=== PATIENT | female | born 1950 | race Caucasian/White ===

== ENCOUNTER 2017-02-19 09:46 | Day surgery (SDC) | payer MEDICARE ==
--- NOTE | 2017-02-19 07:16 | History and Physical Report ---
DATE: 02/18/2017. CHIEF COMPLAINT AND HISTORY OF CHIEF COMPLAINT: This patient presents with a history of an intractable lumbar radiculitis. She has a failing spinal cord stimulator with internal generator for the low back and legs. After assessment , it was felt that due to the failure of the system removal and replacement or removal is warranted. She opted to remove and replace with a system from a different cake maker. We will remove the [employer] system and this will be replaced with a Tier 1 Performance system. PAST MEDICAL HISTORY: Hypertension, complex regional pain syndrome. SOCIAL HISTORY: Hypertension. FAMILY HISTORY: Hypertension. PAST SURGICAL HISTORY: Spinal cord stimulator. Peripheral nerve stimulator. Spinal infusion device. MEDICATIONS ON ADMISSION: To be provided. ALLERGIES: None listed. REVIEW OF SYSTEMS: The patient seems appropriate and in no acute distress. The remainder of the systems review is noncontributory. PHYSICAL EXAMINATION: General: Height and weight are not known. Vital Signs: Unavailable. HEENT: Within normal limits. Lungs: Clear. Heart: Regular rate and rhythm. Abdomen: Nontender. Musculoskeletal: Examination of the musculoskeletal system shows a pulse generator at the posterior gluteal margin. The incision site is intact. A midline incision for placement of the leads is intact. There is no breakdown or cellulitis. Lower extremity functionality shows bilateral lower extremity pain, somewhat more left than right. Sensory blackman are intact. Motor functionality is intact. Ambulation: No assistive device utilized. Neurologic: Cranial nerves are intact. IMPRESSION: 1. INTRACTABLE LUMBAR RADICULITIS, ICD-10 CODE M54.16 AND M54.17. 2. SPINAL CORD STIMULATOR INTERNAL GENERATOR NONFUNCTIONAL. PLAN: The patient is here for removal and replacement of a generator and two spinal cord stimulators. We are swapping the system out for a 16-electrode system from her current 8-electrode system. Increasing the number of electrodes ideally will help improve programmability and pain control. The procedure will be considered outpatient, although an overnight stay will be evaluated. All of the potential risks, side effects, and complications have been carefully reviewed and discussed including nerve root injury, spinal cord injury, spinal or dural puncture, and headache. The patient understands and agrees. JOB NUMBER: [id number] cc: Jamshid Razo
[~2017-02-19 09:46] MED LIST: ACETAMINOPHEN 1,000 MG/100 ML BTL IV ONE; CLINDAMYCIN 600MG/50ML PREMIX 600 MG/50 ML BAG IVPB ONE; FAMOTIDINE 20MG TABLET PO ONE; MECLIZINE 25 MG TABLET PO ONE; METOCLOPRAMIDE 10 MG TABLET PO ONE
[2017-02-19] MEDS ORDERED: *PACU ONLY* KETAMINE HCL 10 MG/ML (20ML) VIAL IV ONE (09:47)
[2017-02-19] MEDS ORDERED: CLINDAMYCIN (PEDIATRIC DOSING) 150 MG/ML VIAL IVPB ONE (09:47)
[2017-02-19] MEDS ORDERED: HYDROMORPHONE HCL 2 MG/ML VIAL IV ONE (09:47)
[2017-02-19] MEDS ORDERED: BUPIVACAINE 0.75% W/EPI MPF 30ML VIAL IVP ONE (09:47)
[2017-02-19] MEDS ORDERED: PROPOFOL 10 MG/ML VIAL IV ONE (09:47)
[2017-02-19] MEDS ORDERED: FLUMAZENIL 1MG/10ML VIAL IV ONE (09:47)
[2017-02-19] MEDS ORDERED: FENTANYL PF 100MCG/2ML VIAL IV ONE (09:47)
[2017-02-19] MEDS ORDERED: LIDOCAINE 1% W/EPI 1:200,000 MPF 30ML SQ ONE (09:47)
[2017-02-19] MEDS ORDERED: LIDOCAINE 2% MDV (20MG/ML) 20ML VIAL IV ONE (09:47)
[2017-02-19] MEDS ORDERED: MIDAZOLAM HCL 2MG/2ML VIAL IV ONE (09:47)
[2017-02-19] MEDS ORDERED: SENNOSIDES/DOCUSATE SODIUM UD CAPSULE PO PRN ×2 (16:02)
[2017-02-19] MEDS ORDERED: DIPHENHYDRAMINE HCL IV 50 MG/ML VIAL IVP PRN ×2 (16:02)
[2017-02-19] MEDS ORDERED: OXYCODONE/APAP 10MG-325MG TABLET PO PRN ×2 (16:02)
[2017-02-19] MEDS ORDERED: HYDROMORPHONE HCL 2 MG/ML VIAL IM PRN (16:02)
[2017-02-19] MEDS ORDERED: AL HYDROX/MAG HYDROX 30ML UD PO PRN (16:02)
[2017-02-19] MEDS ORDERED: HYDROMORPHONE HCL 1 MG/ML CPJ IM PRN (16:02)
[2017-02-19] MEDS ORDERED: DIPHENHYDRAMINE HCL 25 MG CAPSULE PO PRN ×2 (16:02)
[2017-02-19] MEDS ORDERED: TEMAZEPAM 15 MG CAPSULE PO PRN ×2 (16:02)
[2017-02-19] MEDS ORDERED: METOCLOPRAMIDE HCL 10 MG/2 ML VIAL IVP PRN (16:02)
[2017-02-19] MEDS ORDERED: ACETAMINOPHEN 325 MG TAB PO PRN ×2 (16:02)
[2017-02-19] MEDS ORDERED: HYDROCODONE/APAP 7.5/325MG TABLET PO PRN ×2 (16:02)
[2017-02-19] MEDS ORDERED: METOCLOPRAMIDE 10 MG TABLET PO PRN (16:02)
--- NOTE | 2017-02-19 18:46 | Operative Note - Ferro ---
DATE OF SURGERY: 02/19/17 PREOPERATIVE DIAGNOSES: 1. INTRACTABLE LUMBAR RADICULITIS, ICD-10 CODE = M54.16 AND M54.17. 2. TWO LEAD SPINAL CORD STIMULATOR, INTERNAL GENERATOR NONFUNCTIONAL. OPERATION: 1. INCISION, SUBCUTANEOUS DISSECTION, AND REMOVAL OF INTERNAL SPINAL CORD STIMULATORS X2. 2. INCISION, SUBCUTANEOUS DISSECTION, AND REMOVAL OF RIGHT POSTERIOR GLUTEAL MARGIN INTERNAL PULSE GENERATOR. 3. FLUOROSCOPICALLY-GUIDED EPIDURAL ACCESS T12-L1, STANDARD EPIDURAL NEEDLE WITH LOSS OF RESISTANCE, PLACEMENT OF SPINAL CORD STIMULATOR LEAD 1, A [employer] INFINION 16 WITH 16 ELECTRODES POSITIONED LEFT T7. 4. FLUOROSCOPICALLY-GUIDED EPIDURAL ACCESS T11-12, PLACEMENT OF SPINAL CORD STIMULATOR LEAD 2, A [employer] INFINION 16 WITH 16 ELECTRODES POSITIONED RIGHT T7. 5. COMPLEX PROGRAMMING LEAD 1 OVER 20 MINUTES FOLLOWED BY COMPLEX PROGRAMMING OF LEAD 2 OVER 20 MINUTES. 6. REVISION OF INCISIONAL SITE FOR LEADS REMOVAL OF NEEDLES, AND USING A [employer] LOCKING ANCHOR TO SECURE EACH LEAD TO THE SUPRASPINOUS FASCIA WITH NONABSORBABLE SUTURE. 7. REVISION OF RIGHT POSTERIOR GLUTEAL MARGIN GENERATOR SITE AND POUCH FOR NEW GENERATOR IDENTIFIED A [employer] PROGRAMMABLE RECHARGEABLE. 8. TUNNELING BETWEEN LEAD POUCH AND GENERATOR POUCH, PLACEMENT OF EACH LEAD TO GENERATOR POUCH, EACH LEAD INTERFACED WITH GENERATOR. 9. PLACEMENT OF GENERATOR INTO POUCH SECURING TO POSTERIOR FASCIA WITH NONABSORBABLE SUTURE. PLACEMENT OF LEADS INTO POUCH. CLOSURE OF INCISIONS VICRYL FOR FASCIA, RUNNING SUBCUTICULAR VICRYL FOR SKIN. DERMABOND CLOSURE. 10. COMPLEX PROGRAMMING INTERNAL GENERATOR, TWO STIMULATORS, HOME USE, 20 MINUTES, RECOVERY ROOM. SURGEON: BIJAL LYNN D.O. ANESTHESIA: LOCAL SEDATION. ANESTHESIA PROVIDER: ENRIKE HERNANDEZ CRNA. INDICATION: This patient presents with a history of intractable radiculitis in the lumbar and lower extremities. A previous [employer]onic 8 electrode system has stopped functioning appropriately. Generator evaluation seems to indicate some battery depletion. Due to the failure of the systems ability to control pain, she was given the option to remove, replace, or revise; she opted to remove and replace with a new [employer] 16 electrode system. PROCEDURE: Intravenous line, vital sign monitoring, IV sedation, prepped and draped sterile technique, patient position on the operating room table prone. Sterile prep. Sterile technique. Under imaging, the incisional site for the two previous leads infiltrated, incision made, and subcutaneous dissection was conducted to the two leads and their anchoring. Suture was removed intact. At the right posterior gluteal margin generator pouch, skin infiltrated, incision made, and subcutaneous dissection was conducted to the generator. The generator was then removed along with its interface to the leads. Antibiotic irrigation and Bovie for hemostasis. The epidural interspace at 11-12 and 12-1 was then marked and infiltrated. Using two standard curved access Epimed needles with sleeves, the interspace was accessed. At 12-1, spinal cord stimulator lead 1, a [employer] Infinion 16 with 16 electrodes advanced to the epidural space , positioned left at T7. The epidural access at 11-12, similar technique, spinal cord stimulator lead 2, also a [employer] Infinion 16 with 16 electrodes positioned right at T7. Complex programming of lead 1 over 20 minutes followed by complex programming of lead 2 over 20 minutes ultimately resulting in patterns of stimulation across the back and into the legs; patient indicating we were in all of the appropriate areas. She was given the option to implant, remove, or continue to program; she opted to implant. Questions were repeated with the same response. Each of the two leads was then anchored to the supraspinous fascia once the needles were removed with a [employer] [place] and nonabsorbable suture. At the right posterior gluteal margin generator pouch, The pouch was revised to accommodate the new generator identified as a [employer] Programmable Rechargeable. A tunneling tool was then used to carry the leads into the generator pouch and each lead was interfaced to the generator. Antibiotic irrigation and Bovie for hemostasis. The generator was then placed into the pouch and secured to the fascia with nonabsorbable suture. The leads were placed into their own pouch and then the incisions were closed Vicryl for fascia and a running subcuticular Vicryl for skin. A Dermabond closure to approximate the wound. She was transported to the Recovery Room, stable, showing no side-effects from the procedure or the sedation. There were no complications with respect to the upper or lower extremities. She was monitored until stable and transported to the Floor for monitoring, will be considered dischargeable. DISCHARGE INSTRUCTIONS: 1. The sites will remain clean and dry. The Dermabond will allow showering in 12 -24 hours. 2. Standard medications resumed including Levaquin, the antibiotic, 500 mg once a day for 14 days. 3. The office will contact the patient at home. She will be evaluated in 7-10 days. Until then, her activities should stay low, limit bend, lift, push, or pull. Should anything occur with respect to the incision or the dressing, she should contact the clinic. All other instructions provided, numbers to contact with problems given. She will be discharged. cc: Dr. Eric Palafox JOB NUMBER: [id number] MTDD
[2017-02-19] MEDS ORDERED: CLINDAMYCIN 600MG/50ML PREMIX 600 MG/50 ML BAG IVPB SCH (21:50)
[2017-02-19] MEDS ORDERED: ZOLPIDEM TARTRATE 5 MG TABLET PO PRN (22:00)
[2017-02-19] MEDS ORDERED: 0.9 % SODIUM CHLORIDE 10ML SYR IVP SCH (22:00)
[2017-02-20] MEDS ORDERED: SPIRONOLACTONE 25 MG TAB PO SCH (10:00)
--- NOTE | 2017-02-20 10:26 | RADIOLOGY REPORT ---
EXAM: AP LUMBAR SPINE HISTORY: STIMULATOR PLACEMENT. TECHNIQUE: An AP view of the lumbar spine was obtained. Comparison: None. FINDINGS: Two stimulator leads overlie the thoracic spine extending cephalad to the mid T8 level. Power pack overlies the right lower quadrant. Minimal dextroconvex curvature of the thoracolumbar spine. IMPRESSION: STIMULATOR LEADS IN PLACE DETAILED ABOVE. JOB NUMBER: [id number] MTDD
== END 2017-02-19 18:20 | disposition home or self-care (01) ==
LOC: SUR 09:46 → MEDSURG 15:57 → SUR 18:20
PROVIDERS: ATTEND Pain Medicine Interventional Pain Medicine
DX: T85.890A Other specified complication of nervous system prosthetic devices, implants and grafts, initial encounter (principal); M54.16 Radiculopathy, lumbar region; M54.17 Radiculopathy, lumbosacral region; I10 Essential (primary) hypertension; G90.50 Complex regional pain syndrome I, unspecified; E78.00 Pure hypercholesterolemia, unspecified
CPT/HCPCS: 95972; 72020; 63685; 63663; 00300; J3010; J1170; J3490; C1820; C1883

== ENCOUNTER 2017-12-31 06:58 | Day surgery (SDC) | payer MEDICARE ==
--- NOTE | 2017-12-31 06:22 | History and Physical - Ferro ---
CHIEF COMPLAINT/HISTORY OF CHIEF COMPLAINT: This patient presents with a history of intractable lumbar radiculopathy and a spinal opioid infusion system infusing Hydromorphone and Bupivacaine. Over the last number of refills and reprogramming's, battery depletion has been noted. She is here for pump battery change. PAST MEDICAL HISTORY: Hypertension and complex regional pain syndrome. PAST SURGICAL HISTORY: Spinal cord stimulator, peripheral nerve stimulator, and spinal infusion device. MEDICATIONS ON ADMISSION: List be provided. ALLERGIES: None. FAMILY/PSYCHOSOCIAL HISTORY: Social history - Hypertension. Family history - Hypertension. SYSTEMS REVIEW: The patient is appropriate in no acute distress. The remainder of the systems review is noncontributory. PHYSICAL EXAMINATION: Height and weight are not known. Vital signs are not available. HEENT: Within normal limits. LUNGS: Clear. HEART: Regular rate and rhythm. ABDOMEN: Nontender. MUSCULOSKELETAL: Examination of the musculoskeletal system shows the pump in the right lower abdominal quadrant. The incision is intact. There is no breakdown. Her primary pain pattern low back with a bilateral lower extremity extension. Motor and sensory field function is intact. NEUROLOGIC: Cranial nerves are intact. IMPRESSION: 1. LUMBAR RADICULOPATHY, ICD-10 CODE M54.16 AND M54.17. 2. IMPLANTED SPINAL OPIOID INFUSION SYSTEM WITH HYDROMORPHONE AND BUPIVACAINE WITH BATTERY DEPLETION. PLAN: The patient is here for a pump battery change. No perimeters changes. The procedure will be considered outpatient although an overnight stay will be evaluated. JOB NUMBER: [id number] MTDD
[~2017-12-31 06:58] MED LIST changes: +BACLOFEN IV ONE; +BUPIVACAINE HCL IV ONE; +HYDROMORPHONE HCL IV ONE; +HYDROMORPHONE PF 2MG/ML AMP 0.008 MG in 0.9 % SODIUM CHLORIDE 10ML VIA 0.996 ML IV ONE; +[UNRECOGNIZED DRUG - OTHER] IV ONE
[2017-12-31] MEDS ORDERED: FENTANYL PF 100MCG/2ML VIAL IV ONE (06:59)
[2017-12-31] MEDS ORDERED: PROPOFOL 10 MG/ML VIAL IV ONE (06:59)
[2017-12-31] MEDS ORDERED: LIDOCAINE 1% W/EPI 1:200,000 MPF 30ML SQ ONE (06:59)
[2017-12-31] MEDS ORDERED: BUPIVACAINE 0.5% W/EPI MPF 30 ML VIAL IVP ONE (06:59)
[2017-12-31] MEDS ORDERED: CLINDAMYCIN (PEDIATRIC DOSING) 150 MG/ML VIAL IVPB ONE (06:59)
[2017-12-31] MEDS ORDERED: LIDOCAINE 2% MDV (20MG/ML) 20ML VIAL IV ONE (06:59)
[2017-12-31] MEDS ORDERED: MIDAZOLAM HCL 2MG/2ML VIAL IV ONE (06:59)
--- NOTE | 2018-01-02 15:41 | Operative Note ---
DATE: 12/31/2017. PREOPERATIVE DIAGNOSES: 1. INTRACTABLE LUMBAR RADICULOPATHY, ICD-10 CODE M54.16 AND M54.17. 2. SPINAL OPIOID INFUSION SYSTEM WITH HYDROMORPHONE AND BUPIVACAINE. 3. BATTERY DEPLETION OF THE PROGRAMMABLE PUMP. PROCEDURE: Fluoroscopically guided removal and replacement of programmable pump at the right abdominal inferior quadrant. SURGEON: Emre John D.O. ANESTHESIA: Local sedation. ANESTHESIA PROVIDER: Trey Coburn CRNA. INDICATIONS: This patient presents with a history of intractable lumbar radiculopathy managed by a spinal opioid infusion system with hydromorphone and bupivacaine. She is here for pump battery replacement after the identification of a depleting battery at the last refill. DESCRIPTION OF PROCEDURE: Intravenous lines, vital sign monitoring, and intravenous sedation by Anesthesia. Sterile prep and sterile technique with the patient supine. The pump in the right lower abdominal quadrant was marked and infiltrated. An incision was made and subcutaneous dissection was conducted to the pouch. The pouch was opened and the pump was exteriorized. The pump was then from the indwelling catheter. A new 20 mL programmable pump prefilled with hydromorphone and bupivacaine was placed onto the field. The indwelling catheter was interfaced to the pump. The pump was secured to the posterior fascia with a nonabsorbable suture. The pump was then placed into the pouch, and the incision was closed using Stratafix suture, #2-0 for the fascia and #3-0 for the skin. Dermabond closure. She was transported to the recovery room stable with no side effects from the procedure or the sedation. When fully awake and alert, she will be prepared for discharge. DISCHARGE INSTRUCTIONS: 1. The sites are to remain clean and dry. No showering or bathing in any way that would disrupt the dressings. If this happens, contact the clinic. 2. Standard medications to be resumed including Levaquin the antibiotic 500 mg once a day for 14 days. 3. There were no parameter changes to her infusion pump, and so no opioid monitoring should be necessary. 4. The office is to contact the patient in 24 to 48 hours to set up an appointment in 7 to 10 days to evaluate the incisional site. Until then her activities should stay low. 5. All other instructions were written out and provided including numbers to contact with problems. She was then discharged. JOB NUMBER: [id number] cc: Jamshid Razo
== END 2017-12-31 10:18 | disposition home or self-care (01) ==
LOC: SUR 06:58
PROVIDERS: ATTEND Pain Medicine Interventional Pain Medicine
DX: M54.16 Radiculopathy, lumbar region (principal); M54.17 Radiculopathy, lumbosacral region; I10 Essential (primary) hypertension; E78.00 Pure hypercholesterolemia, unspecified
CPT/HCPCS: 62365; 00300; Q9967; J3010; J1170

== ENCOUNTER 2018-01-14 06:43 | Day surgery (SDC) | payer MEDICARE ==
[2018-01-14] MEDS ORDERED: FENTANYL PF 100MCG/2ML VIAL IV ONE (06:44)
[2018-01-14] MEDS ORDERED: PROPOFOL 10 MG/ML VIAL IV ONE (06:44)
[2018-01-14] MEDS ORDERED: MIDAZOLAM HCL 2MG/2ML VIAL IV ONE (06:44)
[2018-01-14] MEDS ORDERED: LIDOCAINE 2% MDV (20MG/ML) 20ML VIAL IV ONE (06:44)
[2018-01-14] MEDS ORDERED: LIDOCAINE 1% W/EPI 1:200,000 MPF 30ML SQ ONE (06:44)
[2018-01-14] MEDS ORDERED: DEXAMETHASONE PRESERVATIVE FREE 10MG/ML VIAL IV ONE (06:44)
[2018-01-14] MEDS ORDERED: BUPIVACAINE 0.5% W/EPI MPF 30 ML VIAL IVP ONE (06:44)
--- NOTE | 2018-01-14 16:21 | Operative Note ---
DATE OF SURGERY: 01/14/18 PREOPERATIVE DIAGNOSIS: CERVICAL SPONDYLOSIS WITHOUT MYELOPATHY, ICD-10 CODE = M47.812. OPERATION: RADIOFREQUENCY RHIZOTOMY BILATERAL CERVICAL FACETS 5-6 AND 6- 7. SURGEON: BIJAL LYNN D.O. ANESTHESIA: ANESTHESIA PROVIDER: INDICATION: This patient presents with pain, which is neck and shoulder. Diagnostics show diffuse and multiple levels of spondylosis. Examination showed diffuse tenderness in the cervical spine. Range of motion does cause pain to the neck with extension. A facet series 75% relief. Due to the failure of therapy and success of facet series, the patient presents for rhizotomy for more long-term relief. PROCEDURE: Intravenous line, vital sign monitoring, IV sedation, prepped, draped, sterile technique. Cervical facet levels at 5-6 and 6-7 were identified and marked bilaterally, infiltrated with local then a 22-gauge rhizotomy cannula positioned. Stimulation trials conducted. Rhizotomy burn performed. Local with anti-inflammatory into the sites. Topical antibiotics. Sterile dressing was applied. We will monitor and evaluate. cc: Dr. Palafox JOB NUMBER: [id number] MTDD
== END 2018-01-14 09:12 | disposition home or self-care (01) ==
LOC: SUR 06:43
PROVIDERS: ATTEND Pain Medicine Interventional Pain Medicine
DX: M47.812 Spondylosis without myelopathy or radiculopathy, cervical region (principal); I10 Essential (primary) hypertension; E78.00 Pure hypercholesterolemia, unspecified

== ENCOUNTER 2019-02-17 12:04 | Day surgery (SDC) | payer MEDICARE ==
--- NOTE | 2019-02-17 07:19 | History and Physical - Ferro ---
CHIEF COMPLAINT/HISTORY OF CHIEF COMPLAINT: This patient presents with a history of bilateral lumbar radiculopathy which is indicated as neurogenic intermittent claudication secondary to multiple levels of lumbar spinal stenosis. Due to the failure of therapy and the continuation of pain in the lower extremities, her lower extremity pain is aggravated by ambulation, it subsides and is controlled by sitting or bending forward. Diagnostic studies including MRI shows lumbar spinal stenosis at L3-L4 and L4-L5. Unfortunately she has a spinal catheter at L3-L4, she is here for interspinal spacer - Vertiflex placement at L4-L5 for decompression of the level and spinal stenosis at L4-L5 to control the neurogenic intermittent claudication. Her treatment history has been extensive with 15-20 years of conservative therapies, all have failed to control this leg pain. PAST MEDICAL HISTORY: Hypertension and complex regional pain syndrome. PAST SURGICAL HISTORY: Spinal cord stimulator, peripheral nerve stimulator, and spinal infusion device. MEDICATIONS ON ADMISSION: List to be provided. ALLERGIES: None. FAMILY/PSYCHOSOCIAL HISTORY: Family history - Hypertension. SYSTEMS REVIEW: The patient is appropriate in no acute distress. The remainder of the systems review is noncontributory. PHYSICAL EXAMINATION: No height and weight are known. Vital signs are not available. HEENT: Within normal limits. LUNGS: Clear. HEART: Rapid and regular. ABDOMEN: Nontender. MUSCULOSKELETAL: Examination of the musculoskeletal system shows the primary pain to be bilateral lower extremities. Mild motor and mild sensory abnormalities are noted. Ambulation - No assistive device utilized. The pain is provoked by ambulation and subsides and is controlled by sitting or forward flexing. NEUROLOGIC: Cranial nerves are intact. IMPRESSION: 1. LUMBAR RADICULOPATHY, ICD-10 CODE M54.16 AND M54.17. 2. LUMBAR SPINAL STENOSIS WITH NEUROGENIC INTERMITTENT CLAUDICATION, ICD-10 CODE M48.062. PLAN: The patient is here for interspinal spacer placement at L4-L5 - Vertiflex. The procedure has been described and discussed in detail. Information was provided by the meteorology teacher. Six week researching period is noted. The patient's questions have been answered. The procedure will be outpatient, no overnight stay will be evaluated. JOB NUMBER: [id number] MTDD
[~2019-02-17 12:04] MED LIST changes: -ACETAMINOPHEN 1,000 MG/100 ML BTL IV ONE; +ACETAMINOPHEN 1,000 MG/100 ML BTL IVPB ONE; -BACLOFEN IV ONE; -BUPIVACAINE HCL IV ONE; -HYDROMORPHONE HCL IV ONE; -HYDROMORPHONE PF 2MG/ML AMP 0.008 MG in 0.9 % SODIUM CHLORIDE 10ML VIA 0.996 ML IV ONE; -[UNRECOGNIZED DRUG - OTHER] IV ONE
[2019-02-17] MEDS ORDERED: FENTANYL PF 100MCG/2ML VIAL IV ONE (12:05)
[2019-02-17] MEDS ORDERED: MIDAZOLAM HCL 2MG/2ML VIAL IV ONE (12:05)
[2019-02-17] MEDS ORDERED: PROPOFOL 10 MG/ML VIAL IV ONE (12:05)
[2019-02-17] MEDS ORDERED: LIDOCAINE 2% MDV (20MG/ML) 20ML VIAL IV ONE (12:05)
[2019-02-17] MEDS ORDERED: RINGERS SOLUTION,LACTATED 1,000 ML IV ONE (12:58)
[2019-02-17] MEDS ORDERED: Clindamycin 600mg vial 150 MG/ML VIAL IR ONE (14:55)
--- NOTE | 2019-02-18 09:03 | Operative Note - Ferro ---
DATE OF SURGERY: 02/17/2019 PREOPERATIVE DIAGNOSIS: LUMBAR SPONDYLOSIS WITH NEUROGENIC INTERMITTENT CLAUDICATION, ICD-10 CODE M48.062. OPERATION: FLUOROSCOPICALLY GUIDED INDIRECT LUMBAR SPINAL DECOMPRESSION WITH INTERSPINAL SPACER - VERTIFLEX AT L4-L5. SURGEON: Emre John D.O. INDICATION: This patient presents with a history of pain which is bilateral lower extremity. Her treatment history with this pain pattern has gone back 15- 20 years. Her treatment has included extensive conservative and aggressive therapies. Due to the failure of therapy, she is here for indirect lumbar decompression using an interspinal spacer - Vertiflex at L4-L5. Her diagnostics confirm lumbar spinal stenosis at both L4-L5 and L5-S1. Her pain pattern is lower extremity aggravated with ambulation and exercise, reduced and eliminated with sitting and forward bending. Due to the failure of her conservative therapies and her symptom pattern consistent with neurogenic intermittent claudication from her lumbar spinal stenosis, she is here for spacer placement. PROCEDURE: Intravenous line, vital sign monitoring, IV sedation, prepped and draped, sterile technique. The patient was positioned prone. Sterile prep, sterile technique. The spinal interspace at L4-L5 after the sterile prep, sterile technique, and using local for infiltration was identified and marked on the skin, skin infiltrated. A 22-gauge spinal needle was positioned on AP and lateral imaging to confirm orientation axis of the spinal canal. A scalpel blade was then used to create an incision on lateral image directly in between the spinous processes at L4 and L5. Using a series of dilators the spinous processes were first dilated and then distracted. Once the spinous processes at L4-L5 were distracted a reaming device was used to debride and cavitate a small canal posterior to the lamina. A gauging tool was then inserted and used to identify the appropriate size spacer which would fit between the distracted spinous processes of L4 and L5. A 14-gauge interspinal spacer Vertiflex was identified. Using a separate instrument the spacer was placed under imaging with AP lateral confirming appropriate position of the spacer and its extensions at the inferior spinous process of L4 and the superior spinous process of L5. The spacer was then expanded to its maximum and tapped down firmly against the laminar line posterior at L4-L5. AP and lateral images were used to confirm appropriate placement of the spacer. The devices and instruments were removed, antibiotic irrigation performed, the incision was closed with a 2-0 Vicryl approximating the fascial tha for skin. A dressing was placed. She was transported the Recovery Room stable. There were no side effects from the procedure or the sedation. She tolerated it without difficulty. She was transported to the Recovery Room stable. She was monitored and then prepared for discharge. DISCHARGE INSTRUCTIONS: 1. The sites are to remain clean and dry. A dressing was placed. If she showers the dressings should stay dry. Office to contact the patient within the next two days to set up a time in 7-10 days for us to evaluate the incision. At that point tha will be removed. Her total period of restrictions six weeks. She will be evaluated roughly at two week intervals and at approximately four weeks will be cleared for slight increases in her activity. Total restrictions for six weeks limiting bend, lift, push, pull and aggressive activities. She can drive after she is seen at her first two week evaluation. All other instructions were provided. She will be started on the antibiotic Levaquin 500 mg once a day for fourteen days, the prescription was called by the hospital. She has a prescription at home for pain medications. All other instructions are provided. JOB NUMBER: [id number] MTDD
--- NOTE | 2019-02-19 12:14 | RADIOLOGY REPORT ---
EXAMINATION: Lumbar Spine Single View EXAM DATE: 02/17/2019 3:36 PM TECHNIQUE: AP view INDICATION: S/P VERTIFLEX IMPLANT COMPARISON: Lumbar spine radiographs 02/19/2017 ENCOUNTER: Initial FINDINGS: Unchanged devices over the right pelvis with unchanged catheter material over the right abdomen and s pine. One catheter tip projects at the L1 superior endplates and 2 electrodes extend over the thoraci c spine with the tips above the [id number]. New L4-L5 interspinous hardware IMPRESSION: New L4-L5 interspinous fixation. Unchanged appearance of stimulator/pump devices. Dictated by: Dean Whiting MD on 02/19/2019 12:10 PM. .
== END 2019-02-17 16:11 | disposition home or self-care (01) ==
LOC: SUR 12:04
PROVIDERS: ATTEND Pain Medicine Interventional Pain Medicine
DX: M48.062 Spinal stenosis, lumbar region with neurogenic claudication (principal); I10 Essential (primary) hypertension; E78.00 Pure hypercholesterolemia, unspecified; R00.0 Tachycardia, unspecified; R01.1 Cardiac murmur, unspecified; G90.50 Complex regional pain syndrome I, unspecified
CPT/HCPCS: 22867; 00630; 72020; C1821; J3010; J7120